=== PATIENT | male | born 1970 | race Caucasian/White ===

== ENCOUNTER → 2016-05-03 | Outpatient (REF) | payer BC | LOC: M SFHCLERA 11:23 | PROVIDERS: ATTEND Nurse Practitioner Family | DX: J02.9 Acute pharyngitis, unspecified (principal) ==

== ENCOUNTER → 2016-09-19 | Outpatient (REF) | payer BC | LOC: M SFHCLERA 19:07 | PROVIDERS: ATTEND Nurse Practitioner Family | DX: L03.011 Cellulitis of right finger (principal) ==

== ENCOUNTER → 2016-10-16 | Outpatient (CLI) | payer BC | LOC: M OUTALCOH 08:10 | PROVIDERS: ATTEND Psychiatry & Neurology Psychiatry | DX: F10.20 Alcohol dependence, uncomplicated (principal) ==

== ENCOUNTER 2016-11-22 16:00 | Outpatient (RCR) | payer BC | END 2016-11-26 | LOC: M OUTALCOH 16:00 | PROVIDERS: ATTEND Psychiatry & Neurology Psychiatry | DX: F10.20 Alcohol dependence, uncomplicated (principal); F17.200 Nicotine dependence, unspecified, uncomplicated ==

== ENCOUNTER → 2016-12-27 | Outpatient (RCR) | payer BC | LOC: M OUTALCOH 11-27 16:00 | PROVIDERS: ATTEND Psychiatry & Neurology Psychiatry | DX: F10.20 Alcohol dependence, uncomplicated (principal); F17.210 Nicotine dependence, cigarettes, uncomplicated ==

== ENCOUNTER 2017-01-24 16:00 | Outpatient (RCR) | payer BC | END 2017-01-26 | LOC: M OUTALCOH 16:00 | PROVIDERS: ATTEND Psychiatry & Neurology Psychiatry | DX: F10.20 Alcohol dependence, uncomplicated (principal); F17.200 Nicotine dependence, unspecified, uncomplicated ==

== ENCOUNTER 2017-03-01 09:17 | Outpatient (RCR) | payer BC | END 2017-03-28 | LOC: M OUTALCOH 09:17 | PROVIDERS: ATTEND Psychiatry & Neurology Psychiatry | DX: F10.20 Alcohol dependence, uncomplicated (principal); F17.200 Nicotine dependence, unspecified, uncomplicated ==